=== PATIENT | female | born 1970 | race Caucasian/White ===

== ENCOUNTER 2018-08-14 13:03 | Emergency (ER) | payer BC ==
[2018-08-14] MEDS ORDERED: Sodium Chloride 0.9% 10 ML Syringe FLUSH PRN (13:28)
--- NOTE | 2018-08-14 14:07 | CT ---
Clinical history: 48-year-old female left arm pain. Family history "strokes" Rule out intracranial abnormality. Scan technique: Volume acquisition of data obtained on this emergency unenhanced CT scan of the head and brain while the patient was lying supine on a Siemens multi slice CT scanner [place], [place]. All data archived in the PACS system for storage, reformatting axial/sagittal/coronal planes and study (bone/brain Windows). Interpretation: Negative exam. 1. Uniformly thick bony calvarium and symmetric howard-white matter pattern with underlying mirror-image normal ventricular system. 2. Symmetric clear pneumatization of the paranasal and mastoid sinuses. 3. No hydrocephalus. No supratentorial or posterior fossa mass lesion. No pathologic intracranial calcifications. 4. No focal area of ischemic infarct or signs of encephalomalacia. 5. No sign of acute intracerebral/intraventricular/subarachnoid bleed. No epidural or subdural hematomas. 6. Cerebellum and brainstem unremarkable.
[2018-08-14 14:10] LABS: ANION GAP 11.8; CHLORIDE,CL 102 mmol/L (101-111); SODIUM,NA 135 mmol/L (135-145)
--- NOTE | 2018-08-14 14:56 | EDM.PDOC ---
Scribed by Ronit Hubbard 08/14/18 1414 for Elvia Burns NP ED HPI GENERAL MEDICAL PROBLEM - General Chief Complaint: Neurological Problem Stated Complaint: HARD TIME BREATHING Time Seen by Provider: 08/14/18 13:14 Source of Information: Reports: Patient, RN, RN Notes Reviewed History Limitations: Reports: No Limitations - History of Present Illness INITIAL COMMENTS - FREE TEXT/NARRATIVE: Patient presents to ER with complaint of numbness/tingling to left arm. Patient states she was making breakfast and felt as though someone was touching her on the left side. It was her own left arm. She states she could not feel the left arm. Denies any other symptoms. Her symptoms have resolved upon arrival. Onset: Today Duration: Resolved Prior to Arrival Location: Reports: Generalized Quality: Reports: Ache Severity: Mild Improves with: 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 Worsens with: 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 Associated Symptoms: Reports: No Other Symptoms - Related Data Allergies Allergy/AdvReac Type Severity Reaction Status Date / Time No Known Allergies Allergy Verified 08/14/18 13:25 Home Meds: Home Meds buPROPion [Wellbutrin] 100 mg PO DAILY 08/14/18 [History] Past Medical History HEENT History: Reports: Other (See Below) (intense headaches 5 yaers ago.) Cardiovascular History: Reports: Afib Respiratory History: 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 Gastrointestinal History: 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 Genitourinary History: 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: 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 Musculoskeletal History: 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 Neurological History: 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 Psychiatric History: Reports: Depression Endocrine/Metabolic History: 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 Hematologic History: 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 Immunologic History: 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 Oncologic (Cancer) History: 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 Dermatologic History: 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 - Infectious Disease History Infectious Disease History: Reports: Chicken Pox - Past Surgical History Head Surgeries/Procedures: 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 GI Surgical History: Reports: Cholecystectomy, Hernia Repair/Other Social & Family History - Tobacco Use Smoking Status *Q: Current Every Day Smoker Years of Tobacco use: 20 Packs/Tins Daily: 0.5 Second Hand Smoke Exposure: No - Caffeine Use Caffeine Use: Reports: Soda - Recreational Drug Use Recreational Drug Use: No ED ROS GENERAL - Review of Systems Review Of Systems: ROS reveals no pertinent complaints other than HPI. ED EXAM, NEURO - Physical Exam Exam: See Below Exam Limited By: No Limitations General Appearance: Anxious (very) Eye Exam: Bilateral Eye: EOMI, Normal Inspection, PERRL Ears: Normal External Exam, Normal Canal, Hearing Grossly Normal, Normal TMs Nose: Normal Inspection, Normal Mucosa, No Blood Throat/Mouth: Normal Inspection, Normal Lips, Normal Teeth, Normal Gums, Normal Oropharynx, Normal Voice, No Airway Compromise Head Exam: Atraumatic, Normocephalic Neck: Normal Inspection, Supple, Non-Tender, Full Range of Motion Respiratory/Chest: Wheezing (expiratory) Cardiovascular: Normal Peripheral Pulses, Regular Rate, Rhythm, No Edema, No Gallop, No JVD, No Murmur, No Rub GI/Abdominal: Normal Bowel Sounds, Soft, Non-Tender, No Organomegaly, No Distention, No Abnormal Bruit, No Mass (Female) Exam: Deferred Rectal (Female) Exam: Deferred Neurological: Alert, Normal Mood/Affect, Normal Dorsiflexion, CN II-XII Intact, Normal Plantar Flexion, Normal Gait, Normal Reflexes, No Motor/Sensory Deficits , Oriented x 3 Back Exam: Normal Inspection, Full Range of Motion, NT Extremities: Normal Inspection, Normal Range of Motion, Non-Tender, No Pedal Edema, Normal Capillary Refill Psychiatric: Anxious Skin Exam: Warm, Dry, Intact, Normal Color, No Rash EKG INTERPRETATION EKG Date: 08/14/18 Time: 13:45 Rhythm: Other (sinus bradycardia) Rate (Beats/Min): 59 [place]: Normal P-Wave: Present QRS: RBBB (incomplete) ST-T: Normal QT: Normal Course - Orders/Labs/Meds Orders: Active Orders 24 hr Category Date Time Status EKG Documentation Completion [RC] STAT Care 08/14/18 13:42 Active Peripheral IV Care [RC] . DIRECTED Care 08/14/18 13:29 Active Sodium Chloride 0.9% [Saline Flush] Med 08/14/18 13:28 Active 10 ml FLUSH ASDIRECTED PRN Peripheral IV Insertion Adult [OM.PC] Stat Oth 08/14/18 13:28 Ordered Medication Orders Sodium Chloride (Saline Flush) 10 ml FLUSH ASDIRECTED PRN PRN Reason: Keep Vein Open Labs: Laboratory Tests 08/14/18 08/14/18 08/14/18 Range/Units 13:44 13:44 13:44 WBC 8.6 (5.0-10.0) 10^3/uL RBC 4.74 (4.2-5.4) 10^6/uL Hgb 14.0 (12.0-16.0) g/dL Hct 43.1 (37.0-47.0) % MCV 90.9 (80-100) fL MCH 29.5 (27.0-34.0) pg MCHC 32.5 L (33.0-35.0) g/dL Plt Count 231 (150-450) 10^3/uL Neut % (Auto) 61.4 (42.2-75.2) % Lymph % (Auto) 26.8 (20.5-50.1) % [place] % (Auto) 6.9 (2-8) % Eos % (Auto) 4.3 H (1.0-3.0) % Baso % (Auto) 0.6 (0.0-1.0) % PT 9.3 (9.0-12.0) SEC INR 0.9 (0.9-1.2) Sodium 135 (135-145) mmol/L Potassium 3.8 (3.6-5.0) mmol/L Chloride 102 (101-111) mmol/L Carbon Dioxide 25.0 (21.0-31.0) mmol/L Anion Gap 11.8 BUN 12 (7-18) mg/dL Creatinine 0.7 (0.6-1.3) mg/dL Est Cr Clr Drug Dosing 79.42 mL/min Estimated GFR (MDRD) > 60 BUN/Creatinine Ratio 17.14 Glucose 85 (74-105) mg/dL Calcium 8.6 (8.4-10.2) mg/dl Total Bilirubin 0.8 (0.2-1.0) mg/dL AST 17 (10-42) IU/L ALT 14 (10-60) IU/L Alkaline Phosphatase 56 (42-121) IU/L Total Protein 7.1 (6.7-8.2) g/dl Albumin 3.6 (3.2-5.5) g/dl Globulin 3.5 Albumin/Globulin Ratio 1.03 Urine Color (YELLOW) Urine Appearance (CLEAR) Urine pH (5.0-9.0) Ur Specific [place] (1.005-1.030) Urine Protein (NEGATIVE) Urine Glucose (UA) (NEGATIVE) Urine Ketones (NEGATIVE) Urine Occult Blood (NEGATIVE) Urine Nitrite (NEGATIVE) Urine Bilirubin (NEGATIVE) Urine Urobilinogen (0.2-1.0) mg/dL Ur Leukocyte Esterase (NEGATIVE) Urine RBC /HPF Urine WBC (0-5/HPF) /HPF Ur Epithelial Cells /HPF Amorphous Sediment (0/HPF) /HPF Urine Bacteria (0-FEW/HPF) /HPF Urine Mucus /LPF Urine Opiates Screen (NEGATIVE) Ur Oxycodone Screen (NEGATIVE) Urine Methadone Screen (NEGATIVE) Ur Barbiturates Screen (NEGATIVE) U Tricyclic Antidepress (NEGATIVE) Ur Phencyclidine Scrn (NEGATIVE) Ur Amphetamine Screen (NEGATIVE) U Methamphetamines Scrn (NEGATIVE) Urine MDMA Screen (NEGATIVE) U Benzodiazepines Scrn (NEGATIVE) Urine Cocaine Screen (NEGATIVE) U Marijuana (THC) Screen (NEGATIVE) 08/14/18 08/14/18 Range/Units 13:56 13:56 WBC (5.0-10.0) 10^3/uL RBC (4.2-5.4) 10^6/uL Hgb (12.0-16.0) g/dL Hct (37.0-47.0) % MCV (80-100) fL MCH (27.0-34.0) pg MCHC (33.0-35.0) g/dL Plt Count (150-450) 10^3/uL Neut % (Auto) (42.2-75.2) % Lymph % (Auto) (20.5-50.1) % [place] % (Auto) (2-8) % Eos % (Auto) (1.0-3.0) % Baso % (Auto) (0.0-1.0) % PT (9.0-12.0) SEC INR (0.9-1.2) Sodium (135-145) mmol/L Potassium (3.6-5.0) mmol/L Chloride (101-111) mmol/L Carbon Dioxide (21.0-31.0) mmol/L Anion Gap BUN (7-18) mg/dL Creatinine (0.6-1.3) mg/dL Est Cr Clr Drug Dosing mL/min Estimated GFR (MDRD) BUN/Creatinine Ratio Glucose (74-105) mg/dL Calcium (8.4-10.2) mg/dl Total Bilirubin (0.2-1.0) mg/dL AST (10-42) IU/L ALT (10-60) IU/L Alkaline Phosphatase (42-121) IU/L Total Protein (6.7-8.2) g/dl Albumin (3.2-5.5) g/dl Globulin Albumin/Globulin Ratio Urine Color Yellow (YELLOW) Urine Appearance Slightly cloudy (CLEAR) Urine pH 5.5 (5.0-9.0) Ur Specific [place] 1.025 (1.005-1.030) Urine Protein Negative (NEGATIVE) Urine Glucose (UA) Negative (NEGATIVE) Urine Ketones Negative (NEGATIVE) Urine Occult Blood Trace-intact H (NEGATIVE) Urine Nitrite Negative (NEGATIVE) Urine Bilirubin Negative (NEGATIVE) Urine Urobilinogen 0.2 (0.2-1.0) mg/dL Ur Leukocyte Esterase Negative (NEGATIVE) Urine RBC 0-5 /HPF Urine WBC 0-5 (0-5/HPF) /HPF Ur Epithelial Cells Few /HPF Amorphous Sediment Rare (0/HPF) /HPF Urine Bacteria Rare (0-FEW/HPF) /HPF Urine Mucus Few H /LPF Urine Opiates Screen Negative (NEGATIVE) Ur Oxycodone Screen Negative (NEGATIVE) Urine Methadone Screen Negative (NEGATIVE) Ur Barbiturates Screen Negative (NEGATIVE) U Tricyclic Antidepress Negative (NEGATIVE) Ur Phencyclidine Scrn Negative (NEGATIVE) Ur Amphetamine Screen Negative (NEGATIVE) U Methamphetamines Scrn Negative (NEGATIVE) Urine MDMA Screen Negative (NEGATIVE) U Benzodiazepines Scrn Negative (NEGATIVE) Urine Cocaine Screen Negative (NEGATIVE) U Marijuana (THC) Screen Positive H (NEGATIVE) Meds: Medications Generic Name Dose Route Start Last Admin Trade Name Freq PRN Reason Stop Dose Admin Sodium Chloride 10 ml 08/14/18 13:28 Saline Flush FLUSH ASDIRECTED PRN Keep Vein Open - Radiology Interpretation Free Text/Narrative:: Head CT: Negative exam See rad report Departure - Departure Time of Disposition: 14:43 Disposition: Home, Self-Care 01 Condition: Fair Clinical Impression: Numbness and tingling in left arm - Discharge Information *PRESCRIPTION DRUG MONITORING PROGRAM REVIEWED*: No *COPY OF PRESCRIPTION DRUG MONITORING REPORT IN PATIENT TRISH: No Instructions: Paresthesia, [id number] Forms: ED Department Discharge Additional Instructions: Drink plenty of water Take steps to stop smoking Follow up with your primary care facility - My Orders Last 24 Hours: My Active Orders 08/14/18 13:28 Sodium Chloride 0.9% [Saline Flush] 10 ml FLUSH ASDIRECTED PRN Peripheral IV Insertion Adult [OM.PC] Stat 08/14/18 13:29 Peripheral IV Care [RC] . DIRECTED 08/14/18 13:42 EKG Documentation Completion [RC] STAT - Assessment/Plan Last 24 Hours: My Active Orders 08/14/18 13:28 Sodium Chloride 0.9% [Saline Flush] 10 ml FLUSH ASDIRECTED PRN Peripheral IV Insertion Adult [OM.PC] Stat 08/14/18 13:29 Peripheral IV Care [RC] . DIRECTED 08/14/18 13:42 EKG Documentation Completion [RC] STAT I have read and agree with the documentation that has been completed regarding this visit. By signing this record, I attest that the documentation was completed in my physical presence and is an accurate record of the encounter.
== END 2018-08-14 14:47 | disposition home or self-care (01) ==
LOC: DL.ED 13:03
DX: R20.2 Paresthesia of skin (principal); F17.210 Nicotine dependence, cigarettes, uncomplicated; I48.91 Unspecified atrial fibrillation; F32.9 Major depressive disorder, single episode, unspecified; Z79.899 Other long term (current) drug therapy
CPT/HCPCS: 36415; 70450; 80053; 80305-QW; 81001; 85025; 85610; 93005; 99284-25